=== PATIENT | female | born 1985 | race Caucasian/White ===

== ENCOUNTER 2017-01-28 09:58 | Inpatient (IN) | payer OTHER ==
[~2017-01-28] VITALS: Ht 157.5 cm; Wt 96.5 kg
[~2017-01-28 09:58] MED LIST: PREN1TAB79 PO
[2017-01-28 10:17] VITALS: Ht 157.5 cm; Wt 96.5 kg
[2017-01-28 10:18] VITALS: BP 116/62; PULSE 88
--- NOTE | 2017-01-28 11:04 | RADRPT ---
PROCEDURE: US OB biophysical profile. Ultrasound cervix CLINICAL INDICATION: decreased movements, labor TECHNIQUE: Multiple sonographic images of the pelvis were obtained. In addition, transvaginal bozena ges of the cervix were obtained. The images were reviewed on a PACS workstation. COMPARISON: No prior studies are available for comparison. FINDINGS: There is a single viable intrauterine gestation. Cardiac activity is present with 128 beats per min attila. There is a vertex presentation. The placenta is posterior fundal. There is no evidence of placental abruption. There is a normal amount of amniotic fluid with an DAREN = 14.3 cm. The cervix measures 3.4 cm in length. Biophysical profile: movement 2/2 tone 2/2. breathing 2/2 DAREN 2/2 Total 11/24 RPTAT: AA . IMPRESSION: Normal biophysical profile. Cervix measures 3.4 cm in length. .Michael Chavarria MD, MD Date Time Electronically viewed and signed by .Michael Chavarria MD, MD on 01/28/2017 11:04 .S/
[2017-01-28 11:53] LABS: ADD UMIC YES; UR ASCORBIC ACID 40 mg/dL (NEGATIVE); UR BACTERIA FEW /HPF (NONE SEEN); UR BILIRUBIN (Dip) NEGATIVE (NEGATIVE); UR BLOOD (Dip) NEGATIVE (NEGATIVE); UR CLARITY SLIGHTLY CLOUDY (CLEAR); UR COLOR YELLOW (YELLOW); UR GLUCOSE (Dip) NEGATIVE (NEGATIVE); UR KETONES (Dip) NEGATIVE (NEGATIVE); UR LEUKOCYTE ESTERASE (Dip) TRACE Leu/ul (NEGATIVE); UR MUCUS FEW /HPF (NONE SEEN); UR NITRITE (Dip) NEGATIVE (NEGATIVE); UR RBC 1 /HPF (0-5); UR SPECIFIC GRAVITY (Dip) 1.024 (1.003-1.030); UR SQUAMOUS EPITHELIAL CELL FEW /HPF (FEW); UR TOTAL PROTEIN (Dip) NEGATIVE (NEGATIVE); UR UROBILINOGEN (Dip) NEGATIVE (NEGATIVE)
[2017-01-28 12:12] LABS: BARBITURATES Negative (NEGATIVE); BENZODIAZEPINES Negative (NEGATIVE); CANNABINOIDS Negative (NEGATIVE); COCAINE Negative (NEGATIVE); OPIATES Negative (NEGATIVE)
[2017-01-28] MEDS ORDERED: TERBUTALINE 1 ML ONE (12:41)
[2017-01-28] MEDS: TERBUTALINE 1 MG/ML INJ SC PRN ×2 (12:56→14:22)
[2017-01-28] MEDS ORDERED: LACTATED RINGER'S 500 ML IV SCH (15:30)
[2017-01-28] MEDS ORDERED: DEXTROSE 5%-LR 1,000 ML IV SCH (16:00)
--- NOTE | 2017-01-28 16:11 | CONS ---
Date/Time of Note Date/Time of Note DATE: 01/28/17 TIME: 16:03 Consultation Date/Type/Reason Admit Date/Time January 28, 2017 OB triage consult and admission This patient is a 31 years old 6 para 6 with estimated date of confinement of March 28, 2017 which makes her 31 weeks and 4 days now. She was advised to come to triage for monitoring 6 days ago but she did not come however today she started having contraction for this reason she came to the OB triage area for evaluation. In reviewing her past medical history she had 6 normal vaginal deliveries no section . she has history of drug abuse however drug screen today was negative she says she is allergic to Keflex and vancomycin. On general examination she is a well-developed well-nourished woman. Her general vital signs appears to be normal with blood pressure 116/62, pulse rate 88 respiration, 18 temperature 98.4. Due to contraction she was given 2 doses of terbutaline in triage as well as hydration . With her contractions continuing the decision was made to keep her in the hospital for today and tonight Reason for Consultation Laboratory Tests Test 01/28/17 10:20 Urine Color YELLOW Urine Clarity SLIGHTLY CLOUDY Urine pH 7.0 Urine Specific [place] 1.024 Urine Ketones NEGATIVEmg/dL Urine Nitrite NEGATIVEmg/dL Urine Bilirubin NEGATIVEmg/dL Urine Urobilinogen NEGATIVEmg/dL Urine Leukocyte Esterase TRACELeu/ul Urine Microscopic RBC 1/HPF Urine Microscopic WBC 10/HPF Urine Squamous Epithelial Cells FEW/HPF Urine Bacteria FEW/HPF Urine Mucus FEW/HPF Urine Hemoglobin NEGATIVEmg/dL Urine Glucose NEGATIVEmg/dL Urine Total Protein NEGATIVEmg/dl Urine Opiates Screen Negative Urine Barbiturates Negative Urine Amphetamines Screen Negative Urine Benzodiazepines Screen Negative Urine Cocaine Screen Negative Urine Cannabinoids Negative Current Medications Medications (Trade) Dose Ordered Sig/Dwight Route PRN Reason Start Time Stop Time Status Last Admin Dose Admin Dextrose/Lactated Ringer's (D5-Lr) 1,000 ml @ 125 mls/hr Q8H IV 01/28/17 16:00 01/28/17 11:16 125 MLS/HR Terbutaline Sulfate 0.25 mg 0.25 mg PRN PRN SC PAIN LEVEL 1-5 01/28/17 13:00 01/28/17 14:22 0.25 MG Terbutaline Sulfate 1 ml @ STK-MED ONCE .ROUTE 01/28/17 12:41 01/28/17 12:42 DC Lactated Ringer's 1,000 ml @ 125 mls/hr Q8H IV 01/28/17 16:30 Cancel Lactated Ringer's (Lr) 500 ml @ 500 mls/hr Q1H IV 01/28/17 15:30 01/28/17 16:29 Cancel Constitutional: No chills, No diaphoresis, No disoriented, No febrile, No improved, No no complaints, No other, No poor po, No requiring IVF, No requiring O2 Eyes: No discharge, No no complaints, No other, No pain, No redness, No visual change ENT: No bleeding, No congestion, No discharge, No dysphagia, No no complaints, No other, No pain, No sore throat Respiratory: No cough, No no complaints, No other, No pain, No pleuritic pain, No shortness of breath, No sputum, No wheezing Cardiovascular: No chest pain, No edema, No lightheadedness, No no complaints, No orthopenea, No other, No palpitations, No paroxysmal nocturnal dyspnea Gastrointestinal: No blood, No constipation, No decreased appetite, No diarrhea , No flatus, No nausea, No no complaints, No other, No pain, No passing stool, No vomiting Genitourinary: other (As I mentioned on pelvic examination there was no evidence of vaginal bleeding cervix was closed about 50% effaced membrane intact ), No bleeding, No discharge, No dysuria, No flank pain, No hematuria, No no complaints Musculoskeletal: No back pain, No bone/joint pain, No neck pain, No no complaints, No other, No restricted range of motion, No swelling Skin: other, No bruising, No erythema, No laceration, No no complaints, No pruritis, No rash, No skin lesions Neurologic: No confusion, No dizziness, No focal-weakness, No headache, No no complaints, No other, No seizure, No syncope Endocrine: No dry skin, No no complaints, No other, No polydypsia, No polyuria , No temp intolerance Lymphatic: No adenopathy, No lymphadema, No no complaints, No other, No tender nodes Additional Comments On ultrasound study her biophysical profile was reported 11/24 with amniotic fluid index of 14.3 cm due to continuation of we will keep her tonight and if stable and no contractions will consider discharge tomorrow. For now will be due hydration may repeat terbutaline if necessary we will put her on max sulfate. . Social History Smoking Status: Current every day smoker Exam/Review of Systems Vital Signs Vitals Vital Signs Date Time Temp Pulse Resp B/P Pulse Ox O2 Delivery O2 Flow Rate FiO2 01/28/17 10:18 98.5 88 116/62 Results Results 24 hrs Laboratory Tests Test 01/28/17 10:20 Urine Color YELLOW Urine Clarity SLIGHTLY CLOUDY A Urine pH 7.0 Urine Specific [place] 1.024 Urine Ketones NEGATIVE Urine Nitrite NEGATIVE Urine Bilirubin NEGATIVE Urine Urobilinogen NEGATIVE Urine Leukocyte Esterase TRACE A Urine Microscopic RBC 1 Urine Microscopic WBC 10 H Urine Squamous Epithelial Cells FEW Urine Bacteria FEW A Urine Mucus FEW A Urine Hemoglobin NEGATIVE Urine Glucose NEGATIVE Urine Total Protein NEGATIVE Urine Opiates Screen Negative Urine Barbiturates Negative Urine Amphetamines Screen Negative Urine Benzodiazepines Screen Negative Urine Cocaine Screen Negative Urine Cannabinoids Negative Medications Medications Current Medications Dextrose/Lactated Ringer's (D5-Lr) 1,000 ml @ 125 mls/hr Q8H IV Last administered on 01/28/17 11:16; Admin Dose 125 MLS/HR; Start 01/28/17 at 16: 00 Terbutaline Sulfate (Brethine) 0.25 mg PRN PRN SC PAIN LEVEL 1-5 Last administered on 01/28/17 14:22; Admin Dose 0.25 MG; Start 01/28/17 at 13:00 JONATHAN TOUSSAINT MD Jan 28, 2017 16:11
[2017-01-28] MEDS ORDERED: LACTATED RINGER'S 1,000 ML IV SCH (16:30)
--- NOTE | 2017-01-28 16:50 | TRIAGE ---
OB Triage Datetime Report Generated by CPN: 01/28/2017 16:49 Datetime: 01/28/2017 15:54 Stage of : OB Triage Vaginal Exam Dilatation (cms): 0.0 Station: -2 Exam By: DR FOROOHAR Vaginal Bleeding: None Cervix, Consistency: Soft Cervix, Position: Posterior Presentation 'A': Cephalic Datetime: 01/28/2017 15:09 Stage of : OB Triage Datetime: 01/28/2017 14:48 Labor Evaluation Frequency: 2-3 Monitor Mode: External Duration (sec)2399: 30-50 Resting Tone [place]: Relaxed Heart Rate FHR Baseline Rate: 155 Monitor Mode: External US Variability: Moderate 6-25 bpm Accelerations: 10X10 Decelerations: None Category: Category I Pain Assessment Pain Scale: 4 Pain Presence: Intermittent Pain Type: Cramping; Pressure Pain Location: Perineum Pain Goal: 3 Pain Relief Measures: Comfort Measures Datetime: 01/28/2017 14:12 Labor Evaluation Frequency: 0 Monitor Mode: External Pattern: Normal: <= 5 Contractions in 10 Minutes Resting Tone [place]: Relaxed Heart Rate FHR Baseline Rate: 145 Monitor Mode: External US Variability: Moderate 6-25 bpm Accelerations: 10X10 Decelerations: None Category: Category I Pain Assessment Pain Scale: 0 Pain Presence: None/Denies Pain Type: N/A Pain Goal: 3 Pain Relief Measures: Comfort Measures Datetime: 01/28/2017 12:54 Labor Evaluation Frequency: 2-6 Monitor Mode: External Duration (sec)2399: 30-50 Quality: Mild Pattern: Normal: <= 5 Contractions in 10 Minutes Resting Tone [place]: Relaxed Heart Rate FHR Baseline Rate: 135 Monitor Mode: External US Variability: Moderate 6-25 bpm Accelerations: 10X10 Decelerations: None Category: Category I Pain Assessment Pain Scale: 3 Pain Presence: Intermittent Pain Type: Pressure Pain Location: Perineum Pain Goal: 3 Pain Relief Measures: Comfort Measures Datetime: 01/28/2017 12:13 Labor Evaluation Frequency: 2-4 Monitor Mode: External Duration (sec)2399: 30-50 Quality: Mild Pattern: Normal: <= 5 Contractions in 10 Minutes Resting Tone [place]: Relaxed Heart Rate FHR Baseline Rate: 135 Monitor Mode: External US Variability: Moderate 6-25 bpm Accelerations: 10X10 Decelerations: None Category: Category I Pain Assessment Pain Scale: 3 Pain Presence: Intermittent Pain Type: Cramping Pain Location: Perineum Pain Goal: 3 Pain Relief Measures: Comfort Measures Datetime: 01/28/2017 11:30 Stage of : OB Triage Datetime: 01/28/2017 11:17 Labor Evaluation Frequency: 2-6 Monitor Mode: External Duration (sec)2399: 30-40 Quality: Mild Pattern: Normal: <= 5 Contractions in 10 Minutes Resting Tone [place]: Relaxed Heart Rate FHR Baseline Rate: 135 Monitor Mode: External US Variability: Moderate 6-25 bpm Accelerations: None Decelerations: None Category: Category II Pain Assessment Pain Scale: 3 Pain Presence: Intermittent Pain Type: Cramping Pain Location: Perineum Pain Goal: 3 Pain Relief Measures: Comfort Measures Datetime: 01/28/2017 10:29 Stage of : OB Triage Datetime: 01/28/2017 10:11 Stage of : OB Triage Assessment Type: Triage EGA: 31.4 Maternal Assessment Level of Consciousness: Fully Conscious DTR's/Clonus: DTRs 2+; No Clonus Headache: Denies Blurred Vision: No Respiratory Effort: Unlabored; Regular Rhythm; Equal Expansion Breath Sounds, Left: Clear and Equal Breath Sounds, Right: Clear and Equal Nausea/Vomiting: Denies RUQ Epigastric Pain: Denies Facial Edema: None Temperature Route: Axillary Fall Risk Assessment History of Falling: (0) No Secondary Diagnosis: (0) No Ambulatory Aid: (0) Bedrest/Nurse Assist IV Therapy: (0) No Gait: (0) Normal/Bedrest/Immobile Mental Status: (0) Oriented to Own Ability Fall Score: 0 Fall Risk Score Definition: No Risk: No action required Labor Evaluation Frequency: X1 Monitor Mode: External Duration (sec)2399: 30 Quality: Mild Pattern: Normal: <= 5 Contractions in 10 Minutes Resting Tone [place]: Relaxed Heart Rate FHR Baseline Rate: 145 Monitor Mode: External US Variability: Moderate 6-25 bpm Decelerations: None Pain Assessment Pain Scale: 0 Pain Presence: None/Denies Pain Type: N/A Pain Goal: 3 Pain Relief Measures: Comfort Measures Datetime: 01/28/2017 10:09 Time of Arrival: 01/28/2017 09:50 Arrived By: Ambulatory Arrived From: Home Chief Complaint: SENT FROM OFFICE 6 DAYS AGO FOR RHOGAM SHOT, NST/BPP RELATED TO DFM. DENIES BLEE DING, LEAKING OR UC'S Movement: Present Contractions: Denies/Absent Rupture of Membranes: Denies Vaginal Bleeding: None Vaginal Discharge: Denies Recent Sexual Intercouse: Denies Abdominal Trauma: Not Applicable Additional Patient Complaints: C/O VOMITED X1 2 NIGHTS AGO, A COUPLE OF DAYS OF DIARHHEA Time Provider Notified: 01/28/2017 10:56 Provider Notified: JUAN Initial Plan: MONITOR, BPP, NST, RHOGHAM
[2017-01-28] MEDS: BETAMET NA PHOS/AC(6 MG/ML) 5ML INJ IM SCH (17:41)
[2017-01-28] MEDS: DEXTROSE 5%-LR 1,000 ML IV SCH ×2 (17:43→23:01)
[2017-01-28] MEDS ORDERED: ALBUTEROL 18 GM INHALER INH ONE (20:00)
[2017-01-28] MEDS: AL HYDROX/MG HYDROX/SIMETH 30 ML CUP PO PRN (23:02)
[2017-01-28] MEDS: ALBUTEROL 18 GM INHALER INH PRN (23:57)
[2017-01-29] MEDS: ACETAMINOPHEN 325 MG TAB PO PRN ×2 (02:14→23:46)
[2017-01-29] MEDS: DEXTROSE 5%-LR 1,000 ML IV SCH ×2 (07:36→15:08)
--- NOTE | 2017-01-29 10:44 | QN ---
Documentation Comment 31+ wks GA labor No VB +FM VS stable Gen NAD NST reassuring [place] No CTXs Pelvic Defeered --->possible discharge after completing the steroids --->Close Observation IVONNE SMITH M.D. Jan 29, 2017 10:44
[2017-01-29] MEDS: AL HYDROX/MG HYDROX/SIMETH 30 ML CUP PO PRN (12:51)
[2017-01-29] MEDS: MAGNESIUM SULFATE 20 GM/500 ML 500 ML IV SCH ×3 (13:28→23:36)
[2017-01-29] MEDS ORDERED: MAGNESIUM SULFATE 4 GM/100 ML 100 ML IV ONE (13:30)
[2017-01-29] MEDS: BETAMET NA PHOS/AC(6 MG/ML) 5ML INJ IM SCH (17:54)
[2017-01-30] MEDS: DEXTROSE 5%-LR 1,000 ML IV SCH ×2 (00:12→12:30)
[2017-01-30] MEDS ORDERED: ACETAMINOPHEN 325 MG TAB PO PRN (02:30)
[2017-01-30] MEDS: AL HYDROX/MG HYDROX/SIMETH 30 ML CUP PO PRN ×2 (03:30→21:27)
[2017-01-30 07:51] VITALS: BP 112/39; PULSE 82; RESP 20
[2017-01-30] MEDS: MAGNESIUM SULFATE 20 GM/500 ML 500 ML IV SCH (09:27)
--- NOTE | 2017-01-30 12:04 | DS ---
Date/Time of Note Date/Time of Note DATE: 01/30/17 TIME: 11:52 Discharge Summary Admission/Discharge Info Admit Date/Time Jan 28, 2017 at 16:00 Discharge Date/Time JAN 30 at 11:53 Discharge Diagnosis labor,stable Patient Condition: Good Procedures observation,tocolysis occasional contraction mostly not felt,she is discharged on Procardia ,advised to make appointment in 2 days ,return to hospital in case of contractio Hx of Present Illness 31week 6/7days r/o labor,cervical length 3.4 cm Hospital Course satisfactory ,minimal occasional cont.not felt Home Meds Reported Medications Vit W-Ca,Fe,FA(<1 mg) ( Vitamins) 1 Each Tablet, 1 EACH PO for 7 Days, TAB 12/08/15 Follow-up Plan appointment office in 2days Primary Care Provider Lashawn Bullock MD Pending Labs Laboratory Tests Test 01/30/17 01:29 01/30/17 06:47 Magnesium Level 4.7mg/dl (1.7-2.5) 5.1mg/dl (1.7-2.5) MANDO MARTINEZ MD Jan 30, 2017 12:03
[2017-01-30] MEDS ORDERED: NIFEdipine 10 MG CAP ONE (12:29)
[2017-01-30] MEDS: NIFEdipine 10 MG CAP PO SCH ×2 (17:47→23:33)
[2017-01-30] MEDS: ALBUTEROL 18 GM INHALER INH PRN (22:16)
[2017-01-31] MEDS: NIFEdipine 10 MG CAP PO SCH (06:23)
== END 2017-01-31 11:00 | disposition home or self-care (01) | DRG 780 ==
LOC: L-D 09:58 → OBT 09:58 → OBG 16:00
PROVIDERS: ADMIT Obstetrics & Gynecology; ATTEND Obstetrics & Gynecology
DX: O47.03 False labor before 37 completed weeks of gestation, third trimester (principal); Z3A.31 31 weeks gestation of pregnancy
CPT/HCPCS: 36415; 76817; 76818; 80307; 81001; 83735; 86850; 86885; 86900; 86901; 96360; 96361; 96372; G0463; J0702; J2790; J3105; J3475; J7120; J7121

== ENCOUNTER 2017-02-03 09:49 | Inpatient (IN) | payer OTHER ==
[~2017-02-03] VITALS: Ht 158.8 cm; Wt 97.0 kg
[2017-02-03 10:42] VITALS: Ht 158.8 cm; Wt 97.0 kg
[2017-02-03 10:43] VITALS: BP 98/54; PULSE 96; RESP 20
[2017-02-03] MEDS ORDERED: NIFEdipine 10 MG CAP PO SCH (12:00)
[2017-02-03] MEDS ORDERED: LACTATED RINGER'S 1,000 ML IV SCH (13:11)
--- NOTE | 2017-02-03 13:51 | HP ---
Date/Time of Note Date/Time of Note DATE: 02/03/17 TIME: 13:41 OB - History Hx of Present Free Text/Dictation 31 years old female 32 weeks with a EDC March 28, 2017 admitted to the hospital diagnosis of short cervix, is her second admission in this with the same diagnosis Estimated Due Date: Mar 28, 2017 : 7 Para: 6 Care: Good Care Ultrasounds: Normal mid trimester US Obstetrical Complications: None Medical Complications: None Past Family/Social History * Past Medical, Surgical, Family and Obstetric Histories reviewed from chart. Rubella: immune RPR/VDRL: Negative GBS Status: Negative HBsAG: Unknown OB Admission Exam Vital Signs Vital Signs Vital Signs Date Time Temp Pulse Resp B/P Pulse Ox O2 Delivery O2 Flow Rate FiO2 02/03/17 10:43 98.6 96 20 98/54 Physical Exam HEENT: WNL Heart: Rhythm Normal Lungs: Clear, Equal Abdomen: WNL Cervical Dilatation: Fingertip Effacement: 75% Station: -2 Membranes: Intact Heart Rate: 130's Accelerations: Accelerations Present Decelerations: Early Decelerations Varibility: Moderate Contractions on Admission: None OB Assessment/Plan Reason for admission: other (Short cervix, not in labor) Other plan: Admitted diagnosis of short cervix will be monitored for cervical changes or signs of labor MANDO MARTINEZ MD Feb 03, 2017 13:51
--- NOTE | 2017-02-03 13:54 | RADRPT ---
PROCEDURE: Limited obstetric ultrasound CLINICAL INDICATION: Pain , short cervix TECHNIQUE: Multiple transverse and longitudinal grayscale images of the pelvis were obtained mccray sabdominally and transvaginally.. COMPARISON: US PELVIS 01/28/2017 FINDINGS: The cervix is closed with a length of 2.8 cm. There is a single viable intrauterine gestation. Cardiac activity is present with 144 beats per min attila. There is a vertex presentation. The placenta is posterior. There is no evidence for an abruption or placenta previa. RPTAT: AA IMPRESSION: Cervix length measures 2.8 cm. .Michael Chavarria MD, Date Time Electronically viewed and signed by .Michael Chavarria MD, on 02/03/2017 13:53 .S/
[2017-02-03] MEDS: LACTATED RINGER'S 1,000 ML IV SCH (17:23)
[2017-02-03] MEDS ORDERED: MAGNESIUM SULFATE 4 GM/100 ML 100 ML IV ONE (17:30)
[2017-02-03] MEDS: MAGNESIUM SULFATE 20 GM/500 ML 500 ML IV SCH (17:50)
[2017-02-03] MEDS: ACETAMINOPHEN 325 MG TAB PO PRN (21:29)
[2017-02-04] MEDS: LACTATED RINGER'S 1,000 ML IV SCH ×2 (02:58→16:16)
[2017-02-04] MEDS: MAGNESIUM SULFATE 20 GM/500 ML 500 ML IV SCH ×3 (03:02→22:38)
[2017-02-04] MEDS: FERROUS SULFATE (EC) 325 MG TAB PO SCH (09:29)
[2017-02-04] MEDS: PRENATAL VITAMIN PO SCH (09:30)
--- NOTE | 2017-02-04 14:09 | QN ---
Documentation Comment Vital signs are stable, resting in bed, infrequent mild contraction not felt, Cervical length 2.7 Currently on Procardia 20 mg q. 6 h responding and tolerating well. MANDO MARTINEZ MD Feb 04, 2017 14:09
[2017-02-04] MEDS: AL HYDROX/MG HYDROX/SIMETH 30 ML CUP PO PRN (22:39)
[2017-02-05] MEDS: LACTATED RINGER'S 1,000 ML IV SCH (05:12)
[2017-02-05] MEDS: MAGNESIUM SULFATE 20 GM/500 ML 500 ML IV SCH (08:17)
[2017-02-05] MEDS: PRENATAL VITAMIN PO SCH (08:58)
[2017-02-05] MEDS: FERROUS SULFATE (EC) 325 MG TAB PO SCH (08:58)
[2017-02-05] MEDS: AL HYDROX/MG HYDROX/SIMETH 30 ML CUP PO PRN ×2 (09:54→21:23)
[2017-02-05] MEDS: NIFEdipine 10 MG CAP PO SCH ×3 (12:10→23:48)
[2017-02-05] MEDS ORDERED: INFLUENZA VIRUS VACCINE 0.5 ML SYG IM* ONE (14:00)
--- NOTE | 2017-02-05 15:33 | QN ---
Documentation Comment 31+wks GA with short cx s/p MG and steroid NST reassuring(Last) [place] No CTXs --->continue the same management --->close Observation IVONNE SMITH M.D. Feb 05, 2017 15:33
[2017-02-05] MEDS: ACETAMINOPHEN 325 MG TAB PO PRN (20:35)
[2017-02-06] MEDS: NIFEdipine 10 MG CAP PO SCH ×4 (05:50→23:55)
[2017-02-06] MEDS: FERROUS SULFATE (EC) 325 MG TAB PO SCH (08:55)
[2017-02-06] MEDS: PRENATAL VITAMIN PO SCH (08:55)
--- NOTE | 2017-02-06 13:26 | QN ---
Documentation Comment Resting in bed, denies any contractions her vital signs are stable heart rate category 1 on Procardia 20 mg every 6 hours we will continue continue expecting management until 34 weeks MANDO MARTINEZ MD Feb 06, 2017 13:26
[2017-02-06] MEDS: AL HYDROX/MG HYDROX/SIMETH 30 ML CUP PO PRN (19:29)
[2017-02-07] MEDS: AL HYDROX/MG HYDROX/SIMETH 30 ML CUP PO PRN ×2 (03:16→22:20)
[2017-02-07] MEDS: NIFEdipine 10 MG CAP PO SCH ×4 (06:15→23:47)
[2017-02-07] MEDS: PRENATAL VITAMIN PO SCH (09:46)
[2017-02-07] MEDS: FERROUS SULFATE (EC) 325 MG TAB PO SCH (09:46)
--- NOTE | 2017-02-07 10:13 | QN ---
Documentation Comment Vital signs are stable Afebrile Resting in bed, denies contraction We will continue present expecting management MANDO MARTINEZ MD Feb 07, 2017 10:13
[2017-02-07] MEDS: VITAMIN A & D 5 GM OINT PACKET TOP SCH (23:46)
[2017-02-08] MEDS: NIFEdipine 10 MG CAP PO SCH ×3 (06:00→17:29)
[2017-02-08] MEDS: FERROUS SULFATE (EC) 325 MG TAB PO SCH (09:09)
[2017-02-08] MEDS: PRENATAL VITAMIN PO SCH (09:09)
[2017-02-08] MEDS: VITAMIN A & D 5 GM OINT PACKET TOP SCH ×2 (09:09→21:11)
--- NOTE | 2017-02-08 15:24 | QN ---
Documentation Comment 33 weeks today, sitting in bed having breakfast, denies contractions, heart rate category1, we will continue present expecting management MANDO MARTINEZ MD Feb 08, 2017 15:24
[2017-02-08] MEDS: AL HYDROX/MG HYDROX/SIMETH 30 ML CUP PO PRN ×2 (21:13→21:14)
[2017-02-09] MEDS: NIFEdipine 10 MG CAP PO SCH ×5 (01:15→23:32)
[2017-02-09] MEDS: FERROUS SULFATE (EC) 325 MG TAB PO SCH (09:09)
[2017-02-09] MEDS: VITAMIN A & D 5 GM OINT PACKET TOP SCH ×2 (09:09→21:00)
[2017-02-09] MEDS: PRENATAL VITAMIN PO SCH (09:09)
--- NOTE | 2017-02-09 12:29 | QN ---
Documentation Comment 33+wks GA with short cx s/p MG and steroid NST reassuring(Last) [place] No CTXs --->continue the same management --->close Observation IVONNE SMITH M.D. Feb 09, 2017 12:29
[2017-02-09] MEDS: AL HYDROX/MG HYDROX/SIMETH 30 ML CUP PO PRN (20:56)
[2017-02-10] MEDS: NIFEdipine 10 MG CAP PO SCH ×4 (06:14→23:53)
[2017-02-10] MEDS: VITAMIN A & D 5 GM OINT PACKET TOP SCH ×2 (08:33→21:00)
[2017-02-10] MEDS: FERROUS SULFATE (EC) 325 MG TAB PO SCH (08:33)
[2017-02-10] MEDS: PRENATAL VITAMIN PO SCH (08:33)
--- NOTE | 2017-02-10 17:52 | QN ---
Documentation Comment Resting in bed afebrile vital signs are stable denies contractions, status no change MANDO MARTINEZ MD Feb 10, 2017 17:52
[2017-02-10] MEDS: AL HYDROX/MG HYDROX/SIMETH 30 ML CUP PO PRN (21:00)
[2017-02-11] MEDS: NIFEdipine 10 MG CAP PO SCH ×3 (05:49→18:08)
--- NOTE | 2017-02-11 10:40 | QN ---
Documentation Comment Afebrile Vital signs are stable Resting in bed Denies feeling any contraction We will continue expecting management MANDO MARTINEZ MD Feb 11, 2017 10:40
[2017-02-11] MEDS: FERROUS SULFATE (EC) 325 MG TAB PO SCH (13:36)
[2017-02-11] MEDS: PRENATAL VITAMIN PO SCH (13:36)
[2017-02-11 15:13] LABS: ADD UMIC YES; UR ASCORBIC ACID NEGATIVE (NEGATIVE); UR BACTERIA FEW /HPF (NONE SEEN); UR BILIRUBIN (Dip) NEGATIVE (NEGATIVE); UR BLOOD (Dip) NEGATIVE (NEGATIVE); UR CLARITY CLOUDY (CLEAR); UR COLOR YELLOW (YELLOW); UR GLUCOSE (Dip) NEGATIVE (NEGATIVE); UR KETONES (Dip) NEGATIVE (NEGATIVE); UR LEUKOCYTE ESTERASE (Dip) 3+ Leu/ul (NEGATIVE); UR NITRITE (Dip) NEGATIVE (NEGATIVE); UR RBC 4 /HPF (0-5); UR SQUAMOUS EPITHELIAL CELL FEW /HPF (FEW); UR TOTAL PROTEIN (Dip) NEGATIVE (NEGATIVE); UR UROBILINOGEN (Dip) NEGATIVE (NEGATIVE)
[2017-02-11] MEDS: NITROFURANTOIN (SR) 100 MG CAP PO SCH ×2 (17:07→21:02)
[2017-02-11] MEDS: VITAMIN A & D 5 GM OINT PACKET TOP SCH (21:00)
[2017-02-11] MEDS ORDERED: NITROFURANTOIN (SR) 100 MG CAP PO SCH (21:00)
[2017-02-11] MEDS: ACETAMINOPHEN 325 MG TAB PO PRN (21:02)
[2017-02-11] MEDS: AL HYDROX/MG HYDROX/SIMETH 30 ML CUP PO PRN (21:55)
[2017-02-12] MEDS: NIFEdipine 10 MG CAP PO SCH ×5 (00:10→23:52)
[2017-02-12] MEDS: FERROUS SULFATE (EC) 325 MG TAB PO SCH (08:59)
[2017-02-12] MEDS: VITAMIN A & D 5 GM OINT PACKET TOP SCH ×2 (08:59→21:00)
[2017-02-12] MEDS: PRENATAL VITAMIN PO SCH (08:59)
--- NOTE | 2017-02-12 09:48 | QN ---
Documentation Comment Vital signs are stable, today she is 33 weeks and 4 days. Afebrile D resting in bed, denies feeling any contractions, we will continue present treatment till she is completed 34 weeks MANDO MARTINEZ MD Feb 12, 2017 09:48
[2017-02-12] MEDS: AL HYDROX/MG HYDROX/SIMETH 30 ML CUP PO PRN (20:45)
[2017-02-12] MEDS: NITROFURANTOIN (SR) 100 MG CAP PO SCH (21:06)
[2017-02-13] MEDS: NIFEdipine 10 MG CAP PO SCH ×4 (05:59→23:43)
[2017-02-13] MEDS: PRENATAL VITAMIN PO SCH (08:57)
[2017-02-13] MEDS: NITROFURANTOIN (SR) 100 MG CAP PO SCH ×2 (08:57→21:01)
[2017-02-13] MEDS: FERROUS SULFATE (EC) 325 MG TAB PO SCH (08:57)
[2017-02-13] MEDS: VITAMIN A & D 5 GM OINT PACKET TOP SCH ×2 (09:00→21:00)
--- NOTE | 2017-02-13 11:31 | QN ---
Documentation Comment 33 days 4 days Afebrile Vital signs are stable Status no change, continue present expecting management MANDO MARTINEZ MD Feb 13, 2017 11:31
[2017-02-13] MEDS: AL HYDROX/MG HYDROX/SIMETH 30 ML CUP PO PRN ×2 (16:06→22:10)
[2017-02-13] MEDS ORDERED: NIFEdipine 10 MG CAP PO ONE (23:30)
[2017-02-14] MEDS: NIFEdipine 10 MG CAP PO SCH ×2 (06:05→12:20)
[2017-02-14] MEDS: VITAMIN A & D 5 GM OINT PACKET TOP SCH (09:00)
[2017-02-14] MEDS: PRENATAL VITAMIN PO SCH (09:03)
[2017-02-14] MEDS: FERROUS SULFATE (EC) 325 MG TAB PO SCH (09:03)
[2017-02-14] MEDS: NITROFURANTOIN (SR) 100 MG CAP PO SCH (09:03)
--- NOTE | 2017-02-14 13:38 | DS ---
Date/Time of Note Date/Time of Note DATE: 02/14/17 TIME: 13:32 Discharge Summary Admission/Discharge Info Admit Date/Time Feb 03, 2017 at 09:49 Discharge Date/Time February 14, 2017 at 1332 Discharge Diagnosis 34 weeks history of short cervix being discharged today on Procardia 20 mg every 6 hours appointment to the office in 2 days she will be followed as an outpatient Patient Condition: Good Consults Perinatology consult Procedures Observation and treatment for short cervix Hx of Present Illness admitted at 32 weeks plus gestation with short cervix ultrasound report 2.8 cm Hospital Course No cervical changes since admission, denies contraction ,discharged home with precautionary advice for labor, she will be continuing to take Procardia 20 mg every 6 hours also will continue on Macrobid 100 mg twice daily to complete the course of 2 weeks. Home Meds Reported Medications Vit W-Ca,Fe,FA(<1 mg) ( Vitamins) 1 Each Tablet, 1 EACH PO for 7 Days, TAB 12/08/15 Follow-up Plan Appointment office in 2 days Primary Care Provider Lashawn Bullock MD Time spent on discharge: < 30 minutes MANDO MARTINEZ MD Feb 14, 2017 13:38
== END 2017-02-14 14:46 | disposition home or self-care (01) | DRG 782 ==
LOC: OBG 09:49
PROVIDERS: ADMIT Obstetrics & Gynecology; ATTEND Obstetrics & Gynecology
DX: O26.873 Cervical shortening, third trimester (principal); Z3A.34 34 weeks gestation of pregnancy
CPT/HCPCS: 76817; 81001; 83735; 87081; 87086; 90686; J3475; J7120